=== PATIENT | male | born 1970 | race Caucasian/White ===

== ENCOUNTER 2016-05-20 10:05 | Emergency (ER) | payer OTHER ==
[2016-05-20 11:16] VITALS: BP 155/103
--- NOTE | 2016-05-20 11:44 | UC ---
Abdominal Pain Male HPI - HPI Summary HPI Summary: Son and sick with nausea, vomiting diarrhea---last night at work he started with same symptoms---today no longer has nausea but has diarrhea - History of Current Complaint Chief Complaint: UCGeneralIllness Stated Complaint: FEVER HEADACHE BODYACHES NAUSEA DIARRHEA Time Seen by Provider: 05/20/16 11:43 Hx Obtained From: Patient Onset/Duration: Sudden Onset, Lasting Days - 1, Still Present - but better than last night Timing: Constant Severity Initially: Moderate Severity Currently: Mild Location: Diffuse Radiates: No Character: Cramping Aggravating Factor(s):: Food Alleviating Factor(s): Rest Associated Signs And Symptoms: Positive: Fever - subjective---none now, Decreased Appetite, Nausea, Vomiting, Diarrhea - Allergies/Home Medications Allergies/Adverse Reactions: Allergies Allergy/AdvReac Type Severity Reaction Status Date / Time Penicillins Allergy Severe Hives Verified 09/19/15 15:33 PMH/Surg Hx/FS Hx/Imm Hx Previously Healthy: No Endocrine History Of: Denies: Diabetes, Thyroid Disease Cardiovascular History Of: Reports: Hypertension - BORDERLINE Denies: Cardiac Disorders Respiratory History Of: Denies: COPD, Asthma GI/ History Of: Denies: Ulcer - Surgical History Surgical History: Yes Surgery Procedure, Year, and Place: [place] [facility] - Family History Known Family History: Positive: None Family History: no cardio vascular issues in family lineage - Social History Occupation: Employed Full-time Lives: With Family Alcohol Use: Occasionally Alcohol Amount: 2-3 @ NIGHT "SOMETIMES" Substance Use Type: None Smoking Status (MU): Former Smoker When Did the Patient Quit Smoking/Using Tobacco: 3-4 YEARS AGO Review of Systems Constitutional: Fever, Chills, Fatigue Skin: Negative Eyes: Negative ENT: Negative Respiratory: Negative Cardiovascular: Negative Gastrointestinal: Abdominal Pain, Vomiting, Diarrhea Genitourinary: Negative Motor: Negative Neurovascular: Negative Musculoskeletal: Negative Neurological: Negative Psychological: Negative All Other Systems Reviewed And Are Negative: Yes Physical Exam Triage Information Reviewed: Yes Appearance: Well-Nourished, Ill-Appearing - mild, Thin Vital Signs: Initial Vital Signs Temp 97.9 F 05/20/16 11:13 Pulse 84 05/20/16 11:13 Resp 16 05/20/16 11:13 BP 155/103 05/20/16 11:13 Pulse Ox 99 05/20/16 11:13 Vital Signs Reviewed: Yes Eye Exam: Normal Eyes: Positive: Conjunctiva Clear ENT Exam: Normal ENT: Positive: Normal ENT inspection, Hearing grossly normal, Pharynx normal, TMs normal. Negative: Nasal congestion, Nasal drainage, Tonsillar swelling, Tonsillar exudate, Trismus, Muffled/hoarse voice Dental Exam: Normal Neck exam: Normal Neck: Positive: Supple, Nontender, No Lymphadenopathy Respiratory Exam: Normal Respiratory: Positive: Chest non-tender, Lungs clear, Normal breath sounds, No respiratory distress, No accessory muscle use Cardiovascular Exam: Normal Cardiovascular: Positive: RRR, No Murmur, Pulses Normal, Brisk Capillary Refill Abdominal Exam: Normal Abdomen Description: Positive: Nontender, No Organomegaly, Soft Bowel Sounds: Positive: Present Musculoskeletal Exam: Normal Musculoskeletal: Positive: Strength Intact, ROM Intact, No Edema Neurological Exam: Normal Neurological: Positive: Alert Psychological Exam: Normal Skin Exam: Normal Abd Pain Male Course/Dx - Course Course Of Treatment: clear liquids and advance slowly as tolerated no work today and possibly tomorrow follow with pcp re-check prn - Differential Dx/Clinical Impression Differential Diagnosis/HQI/PQRI: Appendicitis, Bowel Obstruction, Diverticulitis , Other - n/v/d Provider Diagnoses: Acute nausea, vomiting and diarrhea,viral illness Discharge - Discharge Plan Condition: Stable Disposition: HOME Patient Education Materials: Clear Liquid Diet (ED), Acute Nausea and Vomiting (ED), Nutrition Tips for Relief of Diarrhea (ED) Forms: *Work Release Referrals: Jose M Hidalgo MD [Primary Care Provider] - If Needed
== END 2016-05-20 12:03 | disposition home or self-care (01) ==
LOC: UCEAST 10:05
DX: B34.9 Viral infection, unspecified (principal); R50.9 Fever, unspecified; Z88.0 Allergy status to penicillin; Z87.891 Personal history of nicotine dependence
CPT/HCPCS: 99211; G0463

== ENCOUNTER 2016-11-04 13:50 | Emergency (ER) | payer OTHER ==
[2016-11-04 13:59] VITALS: BP 147/103
--- NOTE | 2016-11-04 15:43 | UC ---
Skin Complaint HPI - HPI Summary HPI Summary: SEVERAL TICK BITES OVER LAST FEW WEEKS, NO FEVER, NO MUCLE ACHES. NO JOINT PAIN. YESTERDAY BEGAN DEVELOPING SPREADING RASH ON RIGHT SHOULDER WHERE TICK HAD BEEN EMBEDDED 1.5 WEEKS AGO. - History of Current Complaint Chief Complaint: UCSkin Time Seen by Provider: 11/04/16 15:05 Stated Complaint: TICK BITE Hx Obtained From: Patient Onset/Duration: Gradual Onset, Lasting Weeks, Still Present Skin Exposure Onset/Duration: Weeks Ago Onset Severity: Mild Current Severity: Mild Pain Intensity: 0 Pain Scale Used: 0-10 Numeric Location: Discrete - RIGHT SHOULDER Character: Redness Aggravating: Nothing Alleviating: Nothing Associated Signs & Symptoms: Positive: Rash. Negative: Fever, Chills, Cough, Bruising, Tenderness, Red Streaks Related History: Insect Bite/Sting, Possible Reaction to: Insect - Allergy/Home Medications Allergies/Adverse Reactions: Allergies Allergy/AdvReac Type Severity Reaction Status Date / Time Penicillins Allergy Severe Hives Verified 11/04/16 13:54 Review of Systems Constitutional: Negative Skin: Rash Eyes: Negative ENT: Negative Respiratory: Negative Cardiovascular: Negative Gastrointestinal: Negative Genitourinary: Negative Motor: Negative Neurovascular: Negative Musculoskeletal: Negative Neurological: Negative Psychological: Negative All Other Systems Reviewed And Are Negative: Yes PMH/Surg Hx/FS Hx/Imm Hx Previously Healthy: Yes - Surgical History Surgical History: Yes Surgery Procedure, Year, and Place: [place] [facility] - Family History Known Family History: Positive: None Family History: no cardio vascular issues in family lineage - Social History Occupation: Employed Full-time Lives: With Family Alcohol Use: Occasionally Alcohol Amount: 2-3 @ NIGHT "SOMETIMES" Substance Use Type: None Smoking Status (MU): Former Smoker When Did the Patient Quit Smoking/Using Tobacco: 3-4 YEARS AGO Physical Exam Triage Information Reviewed: Yes Appearance: Well-Appearing, No Pain Distress, Well-Nourished Vital Signs: Initial Vital Signs Temp 98.9 F 11/04/16 13:54 Pulse 93 11/04/16 13:54 Resp 18 11/04/16 13:54 BP 147/103 11/04/16 13:54 Pulse Ox 100 11/04/16 13:54 Vital Signs Reviewed: Yes Eye Exam: Normal ENT Exam: Normal Dental Exam: Normal Neck exam: Normal Neck: Positive: Supple, Nontender, No Lymphadenopathy Respiratory Exam: Normal Respiratory: Positive: Chest non-tender, Lungs clear, Normal breath sounds, No respiratory distress, No accessory muscle use Cardiovascular Exam: Normal Cardiovascular: Positive: RRR, No Murmur, Pulses Normal, Brisk Capillary Refill Abdominal Exam: Normal Musculoskeletal Exam: Normal Musculoskeletal: Positive: Strength Intact, ROM Intact Neurological Exam: Normal Psychological Exam: Normal Skin: Positive: rashes - 2CM X 3CM ERYTHEMATOUS RASSH RIGHT SHOULDER Course/Dx - Differential Diagnoses - Skin Complaint Differential Diagnoses: Allergic Reaction, Cellulitis, Tick Born Illness - Diagnoses Provider Diagnoses: RIGHT SHOULDER ERYTHEMATOUS MIGRANS Discharge - Discharge Plan Condition: Stable Disposition: HOME Prescriptions: DOXYcycline CAP(*) [DOXYcycline 100MG CAP(*)] 100 mg PO BID #20 cap Patient Education Materials: Tick Bite (ED) Referrals: Jose M Hidalgo MD [Primary Care Provider] -
== END 2016-11-04 15:18 | disposition home or self-care (01) ==
LOC: UCEAST 13:50
DX: L53.8 Other specified erythematous conditions (principal); Z88.0 Allergy status to penicillin
CPT/HCPCS: 99212; G0463

== ENCOUNTER 2017-01-07 13:58 | Emergency (ER) | payer OTHER ==
[2017-01-07] MEDS ORDERED: Ibuprofen TAB* 200 MG PO ONE (15:20)
--- NOTE | 2017-01-07 15:42 | RAD ---
HISTORY: Left shoulder pain COMPARISONS: None VIEWS: 4, Frontal internal rotation, external rotation, outlet, and axillary views of the left shoulder FINDINGS: BONE DENSITY: Normal. BONES: There is no acute displaced fracture. There is a well-corticated bone fragment along the inferior margin of the glenoid JOINTS: There is no arthropathy. ALIGNMENT: There is no dislocation. SOFT TISSUES: Unremarkable. OTHER FINDINGS: None. IMPRESSION: WELL-CORTICATED BONE FRAGMENT ALONG THE INFERIOR MARGIN OF THE GLENOID WHICH MAY REFLECT THE SEQUELA OF REMOTE TRAUMA.
[2017-01-07 16:17] VITALS: BP 143/92
--- NOTE | 2017-01-07 16:24 | UC ---
Donna Haywood Alfonso, scribed for Demetrius Kathleen MD on 01/07/17 at 1517 . Shoulder Pain HPI - HPI Summary HPI Summary: This patient is a 46 year old M presenting to [facility] accompanied by a female with a chief complaint of left shoulder pain since yesterday. The CC is described as an ache. The patient rates the pain 6/10 in severity. Symptoms aggravated by movement. Symptoms alleviated by rest. He denies any trauma. He works in a research lab. He denies any unusual physical activity, although his research requires repetitive movements. He denies any PSHx beyond wisdom teeth removal. PMHx of bursitis in a shoulder 12-15 years ago, which he states these symptoms feel similar to. Patients medications reviewed this visit. Patients allergies reviewed this visit. - History of Current Complaint Chief Complaint: UCUpperExtremity Stated Complaint: SHOULDER PAIN Time Seen by Provider: 01/07/17 15:10 Hx Obtained From: Patient Onset/Duration: Sudden Onset, Lasting Days, Still Present Timing: Constant Severity Initially: Moderate Severity Currently: Moderate Location Of Pain: Is Discrete @ - Left shoulder Pain Intensity: 6 Pain Scale Used: 0-10 Numeric Character: Aching Aggravating Factor(s): Movement Alleviating Factor(s): Rest Associated Signs And Symptoms: Positive: Negative Related History: Similar Episode/Dx As - bursitis - Allergies/Home Medications Allergies/Adverse Reactions: Allergies Allergy/AdvReac Type Severity Reaction Status Date / Time Penicillins Allergy Severe Hives Verified 01/07/17 15:04 Home Medications: Home Medications Aspirin-Caffeine [[facility] [employer] 500-32.5 mg] 2 tab PO PRN 01/07/17 [History] PMH/Surg Hx/FS Hx/Imm Hx Previously Healthy: No - bursitis in a shoulder 12-15 years ago - Surgical History Surgical History: Yes Surgery Procedure, Year, and Place: [place] [facility] - Family History Known Family History: Negative: Cardiac Disease Family History: no cardio vascular issues in family lineage - Social History Alcohol Use: Occasionally Alcohol Amount: 2-3 @ NIGHT "SOMETIMES" Substance Use Type: None Smoking Status (MU): Former Smoker When Did the Patient Quit Smoking/Using Tobacco: 3-4 YEARS AGO Review of Systems Constitutional: Negative Musculoskeletal: Other: - Left shoulder pain; negative trauma All Other Systems Reviewed And Are Negative: Yes Physical Exam Triage Information Reviewed: Yes Vital Signs: Initial Vital Signs Temp 98.7 F 01/07/17 15:01 Pulse 81 01/07/17 15:01 Resp 16 01/07/17 15:01 BP 146/99 01/07/17 15:01 Pulse Ox 100 01/07/17 15:01 Vital Signs Reviewed: Yes Diagnostics - Laboratory Diagnostic Studies Completed/Ordered: A shoulder X-Ray reveals, per radiologist , WELL-CORTICATED BONE FRAGMENT ALONG THE INFERIOR MARGIN OF THE GLENOID WHICH MAY REFLECT THE SEQUELA OF REMOTE TRAUMA. ED physician has reviewed this radiology report and agrees. Shoulder Course/Dx - Differential Dx/Diagnosis Provider Diagnoses: right shoulder bursitis. right shoulder rotator cuff strain. right shoulder glenoid old fracture fragment. Discharge - Discharge Plan Condition: Good Disposition: HOME Prescriptions: HYDROcodone/ACETAMIN 5-325 MG* [[place] 5-325 TAB*] 1 tab PO Q4H PRN #14 tab MDD 4 PRN Reason: Pain - Moderate Ibuprofen TAB* [Motrin TAB* 600 MG] 600 mg PO Q6H PRN #20 tab PRN Reason: Pain - Moderate Patient Education Materials: Shoulder Bursitis (ED), Rotator Cuff Tendinitis ( ED) Referrals: Jose M Hidalgo MD [Primary Care Provider] - Arpita Grossman MD [Medical Doctor] - Additional Instructions: FOLLOW UP WITH YOUR PRIMARY CARE PROVIDER WITHIN ONE WEEK FOR HIGH BLOOD PRESSURE NOTED TODAY AT 146/99. You also have a bone fragment off of your glenoid which is the cup that receives the head of your shoulder. You need to see the orthopedist as soon as possible. The documentation as recorded by the Donna roach Alfonso accurately reflects the service I personally performed and the decisions made by , Demetrius Kathleen MD.
== END 2017-01-07 16:24 | disposition home or self-care (01) ==
LOC: UCEAST 13:58
DX: M75.52 Bursitis of left shoulder (principal); S46.012A Strain of muscle(s) and tendon(s) of the rotator cuff of left shoulder, initial encounter; M89.8X1 Other specified disorders of bone, shoulder; S42.92XS Fracture of left shoulder girdle, part unspecified, sequela; X58.XXXA Exposure to other specified factors, initial encounter; Z87.891 Personal history of nicotine dependence; Z88.0 Allergy status to penicillin
CPT/HCPCS: 99212; A9270-GY; G0463

== ENCOUNTER 2018-11-08 11:47 | Emergency (ER) | payer OTHER ==
[2018-11-08 13:04] LABS: ABS Lymphocytes 1.5 10^3/ul (1.0-4.8); ABS Monocytes 0.4 10^3/ul (0-0.8); ABS Neutrophils 3.3 10^3/ul (1.5-7.7); Eosinophil % 0.8 %; Hematocrit 44 % (42-52); Hemoglobin 15.1 g/dL (14.0-18.0); Mean Corpuscular HGB Conc 34 g/dL (31-36); Mean Corpuscular Hemoglobin 34 pg (27-31); Mean Corpuscular Volume 100 fL (80-94); Mean Platelet Volume 7.2 fL (7.4-10.4); Nucleated Red Blood Cells % 0.1; Platelet Count 222 10^3/uL (150-450); Red Blood Count 4.41 10^6 /uL (4.18-5.48); Red Cell Distribution Width 14 % (10-15); White Blood Count 5.3 10^3/uL (3.5-10.8)
[2018-11-08 13:17] LABS: INR 0.9 (0.82-1.09)
[2018-11-08 13:25] LABS: Albumin 4.8 g/dL (3.2-5.2); Albumin/Globulin Ratio 1.6 (1-3); BUN/Creatinine Ratio 11.8 (8-20); Calcium 9.6 mg/dL (8.6-10.3); EGFR African American 151.9 (>60); EGFR Non-African American 125.5 (>60); Potassium 4.1 mmol/L (3.5-5.0); Total Bilirubin 1.1 mg/dL (0.2-1.0); Total Protein 7.8 g/dL (6.4-8.9)
--- NOTE | 2018-11-08 14:18 | ED ---
Upper Extremity Pain - History of Current Complaint Chief Complaint: EDChestPainROMI Stated Complaint: CHEST/ARM PAIN PER PT Time Seen by Provider: 11/08/18 14:09 - Allergies/Home Medications Allergies/Adverse Reactions: Allergies Allergy/AdvReac Type Severity Reaction Status Date / Time Penicillins Allergy Rash Verified 11/08/18 11:56 PMH/Surg Hx/FS Hx/Imm Hx Endocrine/Hematology History: Denies: Hx Diabetes, Hx Thyroid Disease Cardiovascular History: Reports: Hx Hypertension - BORDERLINE Respiratory History: Denies: Hx Asthma, Hx Chronic Obstructive Pulmonary Disease (COPD) GI History: Denies: Hx Ulcer - Surgical History Surgery Procedure, Year, and Place: [place] [facility] Infectious Disease History: No Infectious Disease History: Denies: Hx Clostridium Difficile, Hx Hepatitis, Hx Human Immunodeficiency Virus (HIV), Hx of Known/Suspected MRSA, Hx Shingles, Hx Tuberculosis, History Other Infectious Disease, Traveled Outside the [place] in Last 30 Days - Family History Known Family History: Positive: None Negative: Cardiac Disease Family History: no cardio vascular issues in family lineage - Social History Alcohol Use: Occasionally Alcohol Amount: 2-3 @ NIGHT "SOMETIMES" Substance Use Type: Reports: None Smoking Status (MU): Former Smoker Physical Exam Vital Signs On Initial Exam: Initial Vitals Temp Pulse Resp BP Pulse Ox 98.9 F 90 16 141/90 100 11/08/18 11:51 11/08/18 11:51 11/08/18 11:51 11/08/18 11:51 11/08/18 11:51 Diagnostics - Vital Signs Vital Signs Temp Pulse Resp BP Pulse Ox 11/08/18 13:22 98.7 F 76 16 157/100 98 11/08/18 11:51 98.9 F 90 16 141/90 100 - Laboratory Lab Results: Lab Results 11/08/18 11/08/18 11/08/18 Range/Units 12:54 12:54 12:54 WBC 5.3 (3.5-10.8) 10^3/uL RBC 4.41 (4.18-5.48) 10^6 /uL Hgb 15.1 (14.0-18.0) g/dL Hct 44 (42-52) % MCV 100 H (80-94) fL MCH 34 H (27-31) pg MCHC 34 (31-36) g/dL RDW 14 (10-15) % Plt Count 222 (150-450) 10^3/uL MPV 7.2 L (7.4-10.4) fL Neut % (Auto) 61.5 % Lymph % (Auto) 29.0 % [place] % (Auto) 7.8 % Eos % (Auto) 0.8 % Baso % (Auto) 0.9 % Absolute Neuts (auto) 3.3 (1.5-7.7) 10^3/ul Absolute Lymphs (auto) 1.5 (1.0-4.8) 10^3/ul Absolute Monos (auto) 0.4 (0-0.8) 10^3/ul Absolute Eos (auto) 0.0 (0-0.6) 10^3/ul Absolute Basos (auto) 0.0 (0-0.2) 10^3/ul Absolute Nucleated RBC 0.0 10^3/ul Nucleated RBC % 0.1 INR (Anticoag Therapy) 0.90 (0.82-1.09) Sodium 140 (135-145) mmol/L Potassium 4.1 (3.5-5.0) mmol/L Chloride 105 (101-111) mmol/L Carbon Dioxide 27 (22-32) mmol/L Anion Gap 8 (2-11) mmol/L BUN 8 (6-24) mg/dL Creatinine 0.68 (0.67-1.17) mg/dL Est GFR ( Amer) 151.9 (>60) Est GFR (Non-Af Amer) 125.5 (>60) BUN/Creatinine Ratio 11.8 (8-20) Glucose 93 (70-100) mg/dL Calcium 9.6 (8.6-10.3) mg/dL Total Bilirubin 1.10 H (0.2-1.0) mg/dL AST 43 H (13-39) U/L ALT 26 (7-52) U/L Alkaline Phosphatase 82 (34-104) U/L Troponin I 0.00 (<0.04) ng/mL Total Protein 7.8 (6.4-8.9) g/dL Albumin 4.8 (3.2-5.2) g/dL Globulin 3.0 (2-4) g/dL Albumin/Globulin Ratio 1.6 (1-3) Result Diagrams: 11/08/18 12:54 11/08/18 12:54 Lab Statement: Any lab studies that have been ordered have been reviewed, and results considered in the medical decision making process. Discharge - Discharge Plan Referrals: Jose M Hidalgo MD [Primary Care Provider] - - Attestation Statements Document Initiated by Scribe: Yes
--- NOTE | 2018-11-08 15:06 | ED ---
HPI Chest Pain - HPI Summary HPI Summary: 48 year old Male [facility] accompanied by with a chief complaint of chest pain since last night after carrying large weight. The patient rates the pain 2/10 in severity. Symptoms aggravated by palpation or raising his left arm. Symptoms alleviated by nothing. Patient reports that the chest pain began in the left arm and radiated into his left pectoral muscle. Patient states that after 30 minutes of lying down last night, his left arm pain resolved. Patient reports that left pectoral muscle is still sore. Patient reports right pectoral muscle feels slightly sore as well. Patient denies palpitations and tachycardia. Patient denies hx diabetes. He states that he has hx borderline HTN. He states he had a stress test done 5 years ago which was normal. Fhx mother had prolonged QTc. Patient chews Nicorette gum. - History of Current Complaint Chief Complaint: EDChestPainROMI Time Seen by Provider: 11/08/18 14:09 Hx Obtained From: Patient Onset/Duration: Started Days Ago - 1, Still Present Timing: Constant Current Severity: None Pain Intensity: 2 Pain Scale Used: 0-10 Numeric Aggravating Factor(s): Movement, Other: - palpation Alleviating Factor(s): Nothing Associated Signs and Symptoms: Positive: Negative - palpitations and tachycardia , Other: - left and right pectoral muscles are sore - Allergy/Home Medications Allergies/Adverse Reactions: Allergies Allergy/AdvReac Type Severity Reaction Status Date / Time Penicillins Allergy Rash Verified 11/08/18 11:56 PMH/Surg Hx/FS Hx/Imm Hx Previously Healthy: No Endocrine/Hematology History: Denies: Hx Diabetes, Hx Thyroid Disease Cardiovascular History: Reports: Hx Hypertension - BORDERLINE Respiratory History: Denies: Hx Asthma, Hx Chronic Obstructive Pulmonary Disease (COPD) GI History: Denies: Hx Ulcer - Surgical History Surgery Procedure, Year, and Place: [facility] Infectious Disease History: No Infectious Disease History: Denies: Hx Clostridium Difficile, Hx Hepatitis, Hx Human Immunodeficiency Virus (HIV), Hx of Known/Suspected MRSA, Hx Shingles, Hx Tuberculosis, History Other Infectious Disease, Traveled Outside the [place] in Last 30 Days - Family History Known Family History: Negative: Cardiac Disease Family History: no cardio vascular issues in family lineage - Social History Alcohol Use: Occasionally Alcohol Amount: 2-3 @ NIGHT "SOMETIMES" Hx Substance Use: No Substance Use Type: Reports: None Hx Tobacco Use: Yes Smoking Status (MU): Former Smoker Review of Systems Cardiovascular: Negative - palpitations and tachycardia Positive: Chest Pain Positive: Other - left and right pectoral muscle soreness All Other Systems Reviewed And Are Negative: Yes Physical Exam - Summary Physical Exam Summary: VITAL SIGNS: Reviewed. GENERAL: Patient is a well-developed and nourished MALE who is lying comfortable in the stretcher. Patient is not in any acute respiratory distress. HEAD AND FACE: No signs of trauma. No ecchymosis, hematomas or skull depressions. No sinus tenderness. EYES: PERRLA, EOMI x 2, No injected conjunctiva, no nystagmus. EARS: Hearing grossly intact. Ear canals and tympanic membranes are within normal limits. MOUTH: Oropharynx within normal limits. NECK: Supple, trachea is midline, no adenopathy, no JVD, no carotid bruit, no c- spine tenderness, neck with full ROM. CHEST: Reproducible chest pain. LUNGS: Clear to auscultation bilaterally. No wheezing or crackles. CVS: Regular rate and rhythm, S1 and S2 present, no murmurs or gallops appreciated. ABDOMEN: Soft, non-tender. No signs of distention. No rebound no guarding, and no masses palpated. Bowel sounds are normal. EXTREMITIES: FROM in all major joints, no edema, no cyanosis or clubbing. NEURO: Alert and oriented x 3. No acute neurological deficits. Speech is normal and follows commands. SKIN: Dry and warm. Triage Information Reviewed: Yes Vital Signs On Initial Exam: Initial Vitals Temp Pulse Resp BP Pulse Ox 98.9 F 90 16 141/90 100 11/08/18 11:51 11/08/18 11:51 11/08/18 11:51 11/08/18 11:51 11/08/18 11:51 Vital Signs Reviewed: Yes Diagnostics - Vital Signs Vital Signs Temp Pulse Resp BP Pulse Ox 11/08/18 13:22 98.7 F 76 16 157/100 98 11/08/18 11:51 98.9 F 90 16 141/90 100 - Laboratory Lab Results: Lab Results 11/08/18 11/08/18 11/08/18 Range/Units 12:54 12:54 12:54 WBC 5.3 (3.5-10.8) 10^3/uL RBC 4.41 (4.18-5.48) 10^6 /uL Hgb 15.1 (14.0-18.0) g/dL Hct 44 (42-52) % MCV 100 H (80-94) fL MCH 34 H (27-31) pg MCHC 34 (31-36) g/dL RDW 14 (10-15) % Plt Count 222 (150-450) 10^3/uL MPV 7.2 L (7.4-10.4) fL Neut % (Auto) 61.5 % Lymph % (Auto) 29.0 % [place] % (Auto) 7.8 % Eos % (Auto) 0.8 % Baso % (Auto) 0.9 % Absolute Neuts (auto) 3.3 (1.5-7.7) 10^3/ul Absolute Lymphs (auto) 1.5 (1.0-4.8) 10^3/ul Absolute Monos (auto) 0.4 (0-0.8) 10^3/ul Absolute Eos (auto) 0.0 (0-0.6) 10^3/ul Absolute Basos (auto) 0.0 (0-0.2) 10^3/ul Absolute Nucleated RBC 0.0 10^3/ul Nucleated RBC % 0.1 INR (Anticoag Therapy) 0.90 (0.82-1.09) Sodium 140 (135-145) mmol/L Potassium 4.1 (3.5-5.0) mmol/L Chloride 105 (101-111) mmol/L Carbon Dioxide 27 (22-32) mmol/L Anion Gap 8 (2-11) mmol/L BUN 8 (6-24) mg/dL Creatinine 0.68 (0.67-1.17) mg/dL Est GFR ( Amer) 151.9 (>60) Est GFR (Non-Af Amer) 125.5 (>60) BUN/Creatinine Ratio 11.8 (8-20) Glucose 93 (70-100) mg/dL Calcium 9.6 (8.6-10.3) mg/dL Total Bilirubin 1.10 H (0.2-1.0) mg/dL AST 43 H (13-39) U/L ALT 26 (7-52) U/L Alkaline Phosphatase 82 (34-104) U/L Troponin I 0.00 (<0.04) ng/mL Total Protein 7.8 (6.4-8.9) g/dL Albumin 4.8 (3.2-5.2) g/dL Globulin 3.0 (2-4) g/dL Albumin/Globulin Ratio 1.6 (1-3) Result Diagrams: 11/08/18 12:54 11/08/18 12:54 Lab Statement: Any lab studies that have been ordered have been reviewed, and results considered in the medical decision making process. - EKG 1152 Cardiac Rate: NL - 70 BPM EKG Rhythm: Sinus Rhythm Summary of EKG Findings: 70 bpm, sinus rhythm, No ST elevations Re-Evaluation - Re-Evaluation First Eval Re-Evaluation Time: 16:29 Comment: Patient is agreeable to discharge. Chest Pain Course/Dx - Course Assessment/Plan: 48 year old Male presenting [facility] accompanied by with a chief complaint of chest pain since last night after carrying large weight. The patient rates the pain 2/10 in severity. Symptoms aggravated by palpation or raising his left arm. Symptoms alleviated by nothing. Patient reports that the chest pain began in the left arm and radiated into his left pectoral muscle. Patient states that after 30 minutes of lying down last night, his left arm pain resolved. Patient reports that left pectoral muscle is still sore. Patient reports right pectoral muscle feels slightly sore as well. Patient denies palpitations and tachycardia. Patient denies hx diabetes. He states that he has hx borderline HTN. He states he had a stress test done 5 years ago which was normal. Fhx mother had prolonged QTc. Patient chews Nicorette gum. Blood test results without any significant abnormality, 2 troponins 4 hours apart are negative. EKG shows normal sinus rhythm without any ST elevation. In the ED course the patient was given Toradol for the pain and the symptoms resolved. I believe that the patient has a musculoskeletal pain. I discussed all the findings and test results with the patient. Patient was instructed to return to the emergency room immediately if any of the symptoms return worsens. Plan of care was discussed with the patient and he understands and agrees. All questions were answered at patient satisfaction. There were no further complaints or concerns. Lung exam before discharge: CTA B/L. Good air exchange. No wheezing or crackles heard. CVS: S1 and S2 present. No murmurs appreciated. Patient is alert and oriented x 3. Patient is hemodynamically stable. Patient will be discharged home with follow up PCP in the next 2-3 days - Diagnoses Provider Diagnoses: Atypical chest pain Discharge - Sign-Out/Discharge Documenting (check all that apply): Patient Departure - Discharge Patient Received Moderate/Deep Sedation with Procedure: No - Discharge Plan Condition: Stable Disposition: HOME Patient Education Materials: Chest Pain (ED) Referrals: Jose M Hidalgo MD [Primary Care Provider] - 3 Days Additional Instructions: Follow up with your primary care provider in 3 days. Return to Emergency Department for new or worsening symptoms. - Billing Disposition and Condition Condition: STABLE Disposition: Home - Attestation Statements Document Initiated by Marley: Yes Documenting Scribe: Dalia Garcia Provider For Whom Marley is Documenting (Include Credential): Demetrius Pop M.D. Scribe Attestation: Fadumo Haywood Alison Kim, scribed for Demetrius Pop M.D. on 11/09/18 at 2114. Scribe Documentation Reviewed: Yes Provider Attestation: The documentation as recorded by the marley, Dalia Garcia accurately reflects the service I personally performed and the decisions made by Demetrius carbajal M.D. Status of Marley Document: Viewed
[2018-11-08] MEDS ORDERED: Ketorolac INJ* 30 MG/ML 1 ML VIAL IV PUSH ONE (16:07)
[2018-11-08] MEDS ORDERED: Ketorolac INJ* 60 MG/2 ML VIAL ONE (16:31)
[2018-11-08 16:44] VITALS: BP 148/93
== END 2018-11-08 16:44 | disposition home or self-care (01) ==
LOC: ED 11:47
DX: R07.89 Other chest pain (principal); I10 Essential (primary) hypertension; Z88.0 Allergy status to penicillin; Z87.891 Personal history of nicotine dependence
CPT/HCPCS: 36415; 80053; 84484; 85025; 85610; 93005; 96374; 99282; J1885